=== PATIENT | female | born 1985 | race Hispanic/Latino ===

== ENCOUNTER → 2024-01-12 13:21 | Outpatient (CLI) | payer OTHER, SELFPAY | LOC: WC 14:41 | PROVIDERS: Family Provider Nurse Practitioner Family; PCP Nurse Practitioner Family; Referring Provider Nurse Practitioner Family; Visit Provider Surgery | DX: Z93.3 Colostomy status (principal) | CPT/HCPCS: 99203; 99212 ==

== ENCOUNTER → 2024-10-06 12:53 | Outpatient (CLI) | payer OTHER, SELFPAY | LOC: WC 12:54 | PROVIDERS: Family Provider Nurse Practitioner Family; PCP Nurse Practitioner Family; Referring Provider Nurse Practitioner Family; Visit Provider Surgery | DX: Z93.3 Colostomy status (principal); Z85.038 Personal history of other malignant neoplasm of large intestine | CPT/HCPCS: 99212; 99213 ==

== ENCOUNTER → 2025-07-29 11:05 | Outpatient (CLI) | payer OTHER, SELFPAY | LOC: WC 11:34 | PROVIDERS: Family Provider Nurse Practitioner Family; Visit Provider Physician Assistant | DX: Z93.3 Colostomy status (principal); Z85.048 Personal history of other malignant neoplasm of rectum, rectosigmoid junction, and anus | CPT/HCPCS: 99212 ==